=== PATIENT | male | born 1990 | race African-American/Black ===

== ENCOUNTER 2017-05-27 02:38 | Emergency (ER) | payer OTHER ==
[2017-05-27] MEDS: HYDROmorphone HCL 1 MG/ML SYRINGE (J1170) IM (04:30)
[2017-05-27] MEDS: NORCO 5/325MG TABLET (BULK FOR ED) PO (04:45)
== END 2017-05-27 05:21 | disposition home or self-care (01) ==
LOC: M ED 02:38
DX: S86.811A Strain of other muscle(s) and tendon(s) at lower leg level, right leg, initial encounter (principal); X50.9XXA Other and unspecified overexertion or strenuous movements or postures, initial encounter; Y92.89 Other specified places as the place of occurrence of the external cause; Z98.890 Other specified postprocedural states
CPT/HCPCS: J1170